=== PATIENT | male | born 1960 | race Caucasian/White ===

== ENCOUNTER 2019-08-25 10:26 | Inpatient (IN) | payer OTHER ==
[2019-08-25 11:19] VITALS: BMI 22.8
--- NOTE | 2019-08-25 12:31 | HP ---
<Rose Mary Ennis - Last Filed: 08/25/19 23:57> CIWA Score - Admission Criteria OASAS Guidelines: Admission for Medically Managed Detox: Requires at least one of the followin. CIWA greater than 12 2. Seizures within the past 24 hours 3. Delirium tremens within the past 24 hours 4. Hallucinations within the past 24 hours 5. Acute intervention needed for co occurring medical disorder 6. Acute intervention needed for co occurring psychiatric disorder 7. Severe withdrawal that cannot be handled at a lower level of care (continued vomiting, continued diarrhea, abnormal vital signs) requiring intravenous medication and/or fluids 8. Admission ROS S - HPI Allergies/Adverse Reactions: Allergies Allergy/AdvReac Type Severity Reaction Status Date / Time Penicillins Allergy Intermediate Swelling Verified 08/25/19 11:13 shrimp Allergy Severe Hives Uncoded 08/25/19 11:13 Admission Physical Exam [facility] - Vital Signs Vital Signs: Vital Signs - 24 hr 08/25/19 08/25/19 08/25/19 11:16 15:04 17:14 Temperature 97.0 F L 97.3 F L 97.2 F L Pulse Rate 72 58 L 66 Respiratory 18 16 16 Rate Blood Pressure 128/80 137/71 127/75 08/25/19 20:09 Temperature 98 F Pulse Rate 72 Respiratory 16 Rate Blood Pressure 111/72 <Wilmer King - Last Filed: 08/26/19 07:56> COWS - Scale Resting Pulse: 0= [place] 80 or Below Sweatin= Chills/Flushing Restless Observation: 1= Difficult to Sit Still Pupil Size: 1= Pupils >than Normal Bone or Joint Aches: 2= Severe Diffuse Aches Runny Nose/ Eye Tearin= Runny Nose/Eyes GI Upset > 30mins: 2= Nausea/Diarrhea Tremor Observation: 2= Slight Tremor Visible Yawning Observation: 1= 1-2x During Session Anxiety or Irritability: 2=Irritable/Anxious Goose Flesh Skin: 0=Smooth Skin COWS Score: 14 CIWA Score Nausea/Vomitin Muscle Tremors: 2 Anxiety: 3 Agitation: 3 Paroxysmal Sweats: 1-Minimal Palms Moist Orientation: 0-Oriented Tacttile Disturbances: 1-Very Mild Itch/Numbness Auditory Disturbances: 0-None Visual Disturbances: 0-None Headache: 2-Mild CIWA-Ar Total Score: 14 - Admission Criteria OASAS Guidelines: Admission for Medically Managed Detox: Requires at least one of the followin. CIWA greater than 12 2. Seizures within the past 24 hours 3. Delirium tremens within the past 24 hours 4. Hallucinations within the past 24 hours 5. Acute intervention needed for co occurring medical disorder 6. Acute intervention needed for co occurring psychiatric disorder 7. Severe withdrawal that cannot be handled at a lower level of care (continued vomiting, continued diarrhea, abnormal vital signs) requiring intravenous medication and/or fluids 8. Admission ROS [facility] - HPI Chief Complaint: i need help to stop using heroin,alcohol,cocaine History of Present Illness: this 58 years old male with heroin,cocaine and alcohol dependence,seeking detox, withdrawal symptom, multiple admissions in detox,last admission in [facility] in 05/17 had previous admission in this facility before in 2013 asthma arthritis of back low back pain nicotine dependence 1 pack/day weight loss longest sobriety 6 moths plan for rehab after detox hepatitis c treated Exam Limitations: No Limitations - Ebola screening Have you traveled outside of the country in the last 21 days: No Have you had contact with anyone from an Ebola affected area: No Do you have a fever: No - Review of Systems Constitutional: Chills, Loss of Appetite, Malaise, Night Sweats, Changes in sleep, Weakness, Unintentional Wgt. Loss EENT: reports: Tearing, Nose Congestion Respiratory: reports: Other (asthma) Cardiac: reports: No Symptoms Reported GI: reports: Diarrhea, Nausea, Abdominal cramping : reports: No Symptoms Reported Musculoskeletal: reports: Back Pain, Joint Pain, Muscle Pain Integumentary: reports: Dryness Neuro: reports: Headache, Tremors Endocrine: reports: No Symptoms Reported Hematology: reports: No Symptoms Reported Psychiatric: reports: No Sypmtoms Reported, Judgement Intact, Mood/Affect Appropiate, Orientated x3 Other Systems: Reviewed and Negative Patient History - Patient Medical History Hx Anemia: No Hx Asthma: Yes (ALBUTEROL INHALER) Hx Chronic Obstructive Pulmonary Disease (COPD): No Hx Cancer: No Hx Cardiac Disorders: No Hx Congestive Heart Failure: No Hx Hypertension: No Hx Hypercholesterolemia: No Hx Pacemaker: No HX Cerebrovascular Accident: No Hx Seizures: No Hx Dementia: No Hx Diabetes: No Hx Gastrointestinal Disorders: Yes (GERD--USES NEXIUM OR MYLANTA) Hx Liver Disease: No Hx Genitourinary Disorders: No Hx Sexually Transmitted Disorders: No Hx Renal Disease (ESRD): No Hx Thyroid Disease: No Hx Human Immunodeficiency Virus (HIV): No (NEGATIVE HX) Hx Hepatitis C: Yes (treated in 2015) Hx Depression: No Hx Suicide Attempt: No (DENIES) Hx Bipolar Disorder: No Hx Schizophrenia: No Other Medical History: no suicidal,no homicidal - Patient Surgical History Past Surgical History: Yes Hx Neurologic Surgery: No Hx Cataract Extraction: No Hx Cardiac Surgery: No Hx Lung Surgery: No Hx Breast Surgery: No Hx Breast Biopsy: No Hx Abdominal Surgery: No Hx Appendectomy: No Hx Cholecystectomy: No Hx Genitourinary Surgery: No Hx Section: No Hx Orthopedic Surgery: Yes (TENDON REPAIR LT.WRIST) Other Surgical History: laceration of left wrist with tendon and nerve injury in 1987 Anesthesia Reaction: No - PPD History Previous Implant?: Yes Documented Results: Negative w/proof Implanted On Prior [facility] Admission?: No Date: 04/20/14 Results: 0 mm PPD to be Administered?: No - Smoking Cessation Smoking history: Current every day smoker Have you smoked in the past 12 months: Yes Aproximately how many cigarettes per day: 20 Cigars Per Day: 0 Hx Chewing Tobacco Use: No Initiated information on smoking cessation: Yes 'Breaking Loose' booklet given: 08/25/19 - Substance & Tx. History Hx Alcohol Use: Yes Hx Substance Use: Yes Substance Use Type: Alcohol, Cocaine, Heroin Hx Substance Use Treatment: Yes ([facility] in 05/17 completed) - Substances abused Alcohol Substance route: Oral Frequency: Daily Amount used: 1 pint of whiskey/vodka Age of first use: 19 Date of last use: 08/24/19 Heroin Substance route: Injection Frequency: Daily Amount used: 8-10 bags Age of first use: 19 Date of last use: 08/24/19 Cocaine Substance route: Injection Frequency: 3-6 times per week Amount used: $20-40 Age of first use: 18 Date of last use: 08/24/19 Admission Physical Exam [facility] - Vital Signs Vital Signs: Vital Signs - 24 hr 08/25/19 11:16 Temperature 97.0 F L Pulse Rate 72 Respiratory 18 Rate Blood Pressure 128/80 - Physical General Appearance: Yes: Moderate Distress, Tremorous, Irritable, Sweating, Anxious HEENTM: Yes: Normal ENT Inspection, JORDAN, Pharynx Normal Respiratory: Yes: Lungs Clear, Normal Breath Sounds, No Respiratory Distress, Other (asthma) Neck: Yes: Within Normal Limits, Supple, Trachea in good position Breast: Yes: Within Normal Limits Cardiology: Yes: Within Normal Limits, Regular Rhythm, Regular Rate, S1, S2 Abdominal: Yes: Within Normal Limits, Normal Bowel Sounds, Non Tender, Flat, Soft Genitourinary: Yes: Within Normal Limits Back: Yes: Muscle Spasm Musculoskeletal: Yes: Back pain, Muscle Pain Extremities: Yes: Within Normal Limits, Normal Range of Motion, Tremors, Other ( injury to left wrist with tendon and nerve ,surgery) Neurological: Yes: soup person II-XII NML intact, Fully Oriented, Alert, Other (numbnes of fingers and back of the hand) Integumentary: Yes: Dry Lymphatic: Yes: Within Normal Limits - Diagnostic (1) Opioid dependence with withdrawal Current Visit: Yes Status: Acute (2) Alcohol dependence with uncomplicated withdrawal Current Visit: Yes Status: Acute (3) Nicotine dependence Current Visit: No Status: Chronic (4) Cocaine dependence Current Visit: Yes Status: Acute (5) Weight loss Current Visit: Yes Status: Acute (6) Asthma Current Visit: No Status: Active (7) Low back pain Current Visit: No Status: Active (8) s/p surgery for laceration of left wrist with laceration of Current Visit: No Status: Active Cleared for Admission [facility] - Detox or Rehab [facility] Level of Care: Medically Managed Detox Regimen/Protocol: Methadone/Valium Breathalyzer - Breathalyzer Breathalyzer: 0 Urine Drug Screen - Test Device Lot number: [id number] Expiration date: 04/28/21 - Control Is test valid?: Yes - Results Drug screen NEGATIVE: No Urine drug screen results: FAIZAN-Cocaine, MOP-Opiates, OXY-Oxycodone, MTD- Methadone, BZO-Benzodiazepines Inpatient Rehab Admission - Rehab Decision to Admit Inpatient rehab admission?: No
[2019-08-25] MEDS ORDERED: diazePAM 5 MG TABLET PO ONE (12:52)
[2019-08-25] MEDS ORDERED: MAG HYDROX/AL HYDROX/SIMETH 30 ML UNIT-DOSE CUP PO PRN (12:52)
[2019-08-25] MEDS ORDERED: METHOCARBAMOL 500 MG TABLET PO PRN (12:52)
[2019-08-25] MEDS ORDERED: MAGNESIUM HYDROX 2400MG/30ML ORAL SUSPENSION 30 ML CUP PO PRN (12:52)
[2019-08-25] MEDS ORDERED: cloNIDine HCL 0.1 MG TABLET PO PRN (12:52)
[2019-08-25] MEDS ORDERED: NICOTINE POLACRILEX 2 MG GUM BUC PRN (12:52)
[2019-08-25] MEDS ORDERED: hydrOXYzine PAMOATE 25 MG CAPSULE (FP) PO PRN (12:52)
[2019-08-25] MEDS ORDERED: MAGNESIUM CITRATE 300 ML BOTTLE PO PRN (12:52)
[2019-08-25] MEDS ORDERED: ACETAMINOPHEN 325 MG TABLET (FP) PO PRN ×2 (12:52)
[2019-08-25] MEDS ORDERED: MENTHOL/PHENOL 1 EACH UD MM PRN (12:52)
[2019-08-25] MEDS ORDERED: BISMUTH SUBSALICYLATE 524 MG/30 ML UD PO PRN (12:52)
[2019-08-25] MEDS ORDERED: ALBUTEROL SO4 8 GM HFA INHALER IH PRN (12:56)
[2019-08-25] MEDS ORDERED: METHADONE HCL 10 MG TABLET (FOR DETOX USE ONLY) PO ONE (14:05)
[2019-08-25 14:34] LABS: HEMATOCRIT 37.9 % (35.4-49); HEMOGLOBIN 12.6 GM/dL (11.7-16.9); MCH 30.8 pg (25.7-33.7); MCHC 33.3 g/dl (32.0-35.9); MEAN CELL VOLUME 92.7 fl (80-96); MEAN PLT VOLUME 9.2 fl (7.5-11.1); PLATELET COUNT 175 K/MM3 (134-434); RBC 4.08 M/mm3 (4.00-5.60); RDW 13.1 % (11.9-15.9)
[2019-08-25 14:37] LABS: ALBUMIN 4.2 g/dl (3.4-5.0); BILIRUBIN,TOTAL 0.7 mg/dL (0.2-1); CALCIUM 9.1 mg/dL (8.5-10.1); CREATININE 0.9 mg/dL (0.55-1.3); TOT PROT 7.8 g/dl (6.4-8.2)
[2019-08-25] MEDS: diazePAM 5 MG TABLET PO SCH ×2 (14:47→21:27)
[2019-08-25] MEDS: NICOTINE 21 MG/24 HOURS TOPICAL PATCH TD SCH (14:49)
[2019-08-25] MEDS: FLUTICASONE PROP 0.05% 16 GM NASAL SPRAY NS SCH ×2 (15:00→21:27)
[2019-08-25] MEDS: diazePAM 5 MG TABLET PO PRN (18:02)
[2019-08-25] MEDS: MELATONIN 5 MG TABLETS PO PRN (21:27)
[2019-08-25] MEDS: THIAMINE HCL 100 MG TABLET (FP) PO SCH (21:27)
[2019-08-25] MEDS: FLUOCINONIDE 0.05% CREAM (15 GM TUBE) TP SCH (21:28)
[2019-08-26] MEDS: diazePAM 5 MG TABLET PO SCH ×3 (05:29→21:47)
[2019-08-26] MEDS ORDERED: METHADONE HCL 5 MG TABLET (FOR DETOX USE ONLY) ONE (09:42)
[2019-08-26] MEDS ORDERED: METHADONE HCL 10 MG TABLET (FOR DETOX USE ONLY) ONE (09:42)
[2019-08-26] MEDS ORDERED: METHADONE (DETOX) 20 MG, METHADONE (DETOX) 5 MG PO ONE (10:00)
[2019-08-26 10:11] LABS: URINE APPEARANCE CLEAR; URINE BILIRUBIN NEGATIVE (NEGATIVE); URINE COLOR YELLOW; URINE GLUCOSE (UA) NEGATIVE (NEGATIVE); URINE KETONE NEGATIVE (NEGATIVE); URINE LEUK ESTERASE NEGATIVE (NEGATIVE); URINE NITRITE NEGATIVE (NEGATIVE); URINE PROTEIN NEGATIVE (NEGATIVE); URINE UROBILINOGEN 0.2 mg/dL (0.2-1.0)
[2019-08-26] MEDS: FLUTICASONE PROP 0.05% 16 GM NASAL SPRAY NS SCH ×2 (10:32→21:47)
[2019-08-26] MEDS: NICOTINE 21 MG/24 HOURS TOPICAL PATCH TD SCH (10:32)
[2019-08-26] MEDS: FLUOCINONIDE 0.05% CREAM (15 GM TUBE) TP SCH ×2 (10:32→21:48)
[2019-08-26] MEDS: PRENATAL VITAMINS W/ FOLIC ACID TABLET (FP) PO SCH (10:32)
[2019-08-26] MEDS: NAPROXEN 500 MG TABLET (FP) PO PRN (10:34)
--- NOTE | 2019-08-26 11:02 | PN ---
S CIWA - CIWA Score Nausea/Vomitin-No Nausea/No Vomiting Muscle Tremors: 2 Anxiety: 3 Agitation: 0-Normal Activity Paroxysmal Sweats: 3 Orientation: 0-Oriented Tacttile Disturbances: 0-None Auditory Disturbances: 0-None Visual Disturbances: 0-None Headache: 2-Mild CIWA-Ar Total Score: 10 [facility] COWS - Scale Resting Pulse: 0= [place] 80 or Below Sweatin= Beads of Sweat on Face Restless Observation: 1= Difficult to Sit Still Pupil Size: 0= Normal to Room Light Bone or Joint Aches: 2= Severe Diffuse Aches Runny Nose/ Eye Tearin= None GI Upset > 30mins: 0= None Tremor Observation of Outstretched Hands: 2= Slight Tremor Visible Yawning Observation: 1= 1-2x During Session Anxiety or Irritability: 2=Irritable/Anxious Goose Flesh Skin: 0=Smooth Skin COWS Score: 11 S Progress Note (SOAP) Subjective: c/o anxiety, irritability, sweats, headache, and shakes. Objective: 08/26/19 11:02 Vital Signs 08/26/19 08/26/19 08/26/19 03:30 07:05 09:43 Temperature 97.7 F 97.7 F Pulse Rate 135 H 64 Respiratory 18 20 17 Rate Blood Pressure 117/84 108/64 Lab Results WBC 5.0 K/mm3 (4.0-10.0) 08/25/19 13:00 RBC 4.08 M/mm3 (4.00-5.60) 08/25/19 13:00 Hgb 12.6 GM/dL (11.7-16.9) 08/25/19 13:00 Hct 37.9 % (35.4-49) 08/25/19 13:00 MCV 92.7 fl (80-96) 08/25/19 13:00 MCHC 33.3 g/dl (32.0-35.9) 08/25/19 13:00 RDW 13.1 % (11.9-15.9) 08/25/19 13:00 Plt Count 175 K/MM3 (134-434) 08/25/19 13:00 Sodium 138 mmol/L (136-145) 08/25/19 13:00 Potassium 4.0 mmol/L (3.5-5.1) 08/25/19 13:00 Chloride 100 mmol/L (98-107) 08/25/19 13:00 Carbon Dioxide 31 mmol/L (21-32) 08/25/19 13:00 Anion Gap 6 MMOL/L (8-16) L 08/25/19 13:00 BUN 19.0 mg/dL (7-18) H 08/25/19 13:00 Creatinine 0.9 mg/dL (0.55-1.3) 08/25/19 13:00 Random Glucose 94 mg/dL (74-106) 08/25/19 13:00 Calcium 9.1 mg/dL (8.5-10.1) 08/25/19 13:00 Labs noted. Assessment: 08/26/19 11:02 AOX3, in no acute respiratory distress. Full ROM, ambulating in the unit. Withdrawal symptoms. Plan: continue detox.
--- NOTE | 2019-08-26 15:08 | PN ---
S Progress Note Note: Pt c/o b/l ankle swelling. Pt states that swelling has been on and off for over 1year. Pt has no history of chf or htn. Denies any sob, chest pain, fatigue or weakness, at the moment. No rales or wheezing heard on auscultation, no JVD. Pedal pulses present. Vital signs stable. Refer to V/S flowsheet. Pt is also instructed to notify staff of any c/o difficulty breathing, chest pain, fatigue , or weakness. Pt is encouraged to elevate b/l LE when in bed and also encouraged to see his pmd after discharge for further work-up. Pt verbalized understanding of the information given.
[2019-08-26] MEDS: MELATONIN 5 MG TABLETS PO PRN (21:47)
[2019-08-26] MEDS: THIAMINE HCL 100 MG TABLET (FP) PO SCH (22:07)
[2019-08-27] MEDS: diazePAM 5 MG TABLET PO SCH ×2 (06:14→17:38)
[2019-08-27] MEDS ORDERED: METHADONE HCL 10 MG TABLET (FOR DETOX USE ONLY) PO ONE (10:00)
[2019-08-27] MEDS: FLUOCINONIDE 0.05% CREAM (15 GM TUBE) TP SCH ×2 (10:51→22:13)
[2019-08-27] MEDS: FLUTICASONE PROP 0.05% 16 GM NASAL SPRAY NS SCH ×2 (10:51→22:13)
[2019-08-27] MEDS: NICOTINE 21 MG/24 HOURS TOPICAL PATCH TD SCH (10:51)
[2019-08-27] MEDS: PRENATAL VITAMINS W/ FOLIC ACID TABLET (FP) PO SCH (10:51)
--- NOTE | 2019-08-27 17:08 | PN ---
[facility] CIWA - CIWA Score Nausea/Vomitin-No Nausea/No Vomiting Muscle Tremors: 3 Anxiety: 3 Agitation: 2 Paroxysmal Sweats: 3 Orientation: 0-Oriented Tacttile Disturbances: 0-None Auditory Disturbances: 0-None Visual Disturbances: 0-None Headache: 0-None Present CIWA-Ar Total Score: 11 [facility] COWS - Scale Resting Pulse: 1= [place] 81-100 Sweatin= Chills/Flushing Restless Observation: 3= Extraneous Movement Pupil Size: 0= Normal to Room Light Bone or Joint Aches: 1= Mild Discomfort Runny Nose/ Eye Tearin= None GI Upset > 30mins: 1= Stomach Cramp Tremor Observation of Outstretched Hands: 2= Slight Tremor Visible Yawning Observation: 0= None Anxiety or Irritability: 2=Irritable/Anxious Goose Flesh Skin: 0=Smooth Skin COWS Score: 11 [facility] Progress Note (SOAP) Subjective: Sweating, chills, interrupted sleep Objective: 08/27/19 17:06 Last Vital Signs Temp Pulse Resp BP Pulse Ox 97.7 F 84 18 118/50 L 08/27/19 10:02 08/27/19 10:02 08/27/19 10:02 08/27/19 10:02 Laboratory Tests 08/25/19 08/25/19 08/25/19 13:00 13:00 13:00 WBC 5.0 RBC 4.08 Hgb 12.6 Hct 37.9 MCV 92.7 MCH 30.8 MCHC 33.3 RDW 13.1 Plt Count 175 MPV 9.2 Sodium 138 Potassium 4.0 Chloride 100 Carbon Dioxide 31 Anion Gap 6 L BUN 19.0 H Creatinine 0.9 Est GFR (CKD-EPI)AfAm 110.27 Est GFR (CKD-EPI)NonAf 95.14 Random Glucose 94 Calcium 9.1 Total Bilirubin 0.7 AST 32 ALT 29 Alkaline Phosphatase 69 Total Protein 7.8 Albumin 4.2 Urine Color Urine Appearance Urine pH Ur Specific [place] Urine Protein Urine Glucose (UA) Urine Ketones Urine Blood Urine Nitrite Urine Bilirubin Urine Urobilinogen Ur Leukocyte Esterase RPR Titer Nonreactive 08/26/19 05:30 WBC RBC Hgb Hct MCV MCH MCHC RDW Plt Count MPV Sodium Potassium Chloride Carbon Dioxide Anion Gap BUN Creatinine Est GFR (CKD-EPI)AfAm Est GFR (CKD-EPI)NonAf Random Glucose Calcium Total Bilirubin AST ALT Alkaline Phosphatase Total Protein Albumin Urine Color Yellow Urine Appearance Clear Urine pH 6.0 Ur Specific [place] 1.015 Urine Protein Negative Urine Glucose (UA) Negative Urine Ketones Negative Urine Blood Negative Urine Nitrite Negative Urine Bilirubin Negative Urine Urobilinogen 0.2 Ur Leukocyte Esterase Negative RPR Titer Labs reviewed Assessment: 08/27/19 17:07 Withdrawal sxs Plan: Continue detox Encouraged PO water intake
[2019-08-27] MEDS: THIAMINE HCL 100 MG TABLET (FP) PO SCH (22:13)
[2019-08-27] MEDS: MELATONIN 5 MG TABLETS PO PRN (22:13)
[2019-08-28] MEDS ORDERED: diazePAM 5 MG TABLET PO ONE (06:00)
[2019-08-28] MEDS ORDERED: METHADONE HCL 10 MG TABLET (FOR DETOX USE ONLY) ONE (09:51)
[2019-08-28] MEDS ORDERED: METHADONE HCL 5 MG TABLET (FOR DETOX USE ONLY) ONE (09:52)
[2019-08-28] MEDS ORDERED: METHADONE (DETOX) 10 MG, METHADONE (DETOX) 5 MG PO ONE (10:00)
[2019-08-28] MEDS: FLUOCINONIDE 0.05% CREAM (15 GM TUBE) TP SCH ×2 (10:27→21:44)
[2019-08-28] MEDS: diazePAM 5 MG TABLET PO PRN (10:28)
[2019-08-28] MEDS: PRENATAL VITAMINS W/ FOLIC ACID TABLET (FP) PO SCH (10:28)
[2019-08-28] MEDS: FLUTICASONE PROP 0.05% 16 GM NASAL SPRAY NS SCH ×2 (10:29→21:41)
[2019-08-28] MEDS: FUROSEMIDE 40 MG TABLET (FP) PO SCH (10:30)
[2019-08-28] MEDS: NICOTINE 21 MG/24 HOURS TOPICAL PATCH TD SCH (10:31)
--- NOTE | 2019-08-28 10:39 | PN ---
[facility] CIWA - CIWA Score Nausea/Vomitin-Mild Nausea/No Vomiting Muscle Tremors: 1-None Visible, but [place] Anxiety: 1-Mildly Anxious Agitation: 1-Slight > Activity Paroxysmal Sweats: No Perspiration Orientation: 0-Oriented Tacttile Disturbances: 1-Very Mild Itch/Numbness Auditory Disturbances: 0-None Visual Disturbances: 0-None Headache: 2-Mild CIWA-Ar Total Score: 7 [facility] COWS - Scale Resting Pulse: 1= [place] 81-100 Sweatin= No chills or Flushing Restless Observation: 1= Difficult to Sit Still Pupil Size: 1= Pupils >than Normal Bone or Joint Aches: 1= Mild Discomfort Runny Nose/ Eye Tearin= Nasal Congestion GI Upset > 30mins: 1= Stomach Cramp Tremor Observation of Outstretched Hands: 1= Tremor [place], Not Seen Yawning Observation: 1= 1-2x During Session Anxiety or Irritability: 1=Feels Anxious/Irritable Goose Flesh Skin: 0=Smooth Skin COWS Score: 9 [facility] Progress Note (SOAP) Subjective: alert,irritable,anxious,interrupted sleep,edema both ankles and feet Objective: 08/28/19 10:38 Vital Signs Temperature 96.8 F L 08/28/19 09:04 Pulse Rate 81 08/28/19 09:04 Respiratory Rate 18 08/28/19 09:04 Blood Pressure 110/50 L 08/28/19 09:04 O2 Sat by Pulse Oximetry (%) Assessment: 08/28/19 10:38 withdrawal symptom Plan: continue detox methadone and valium regimen,lsix 40 mgspo daily x 3days
[2019-08-28] MEDS: MELATONIN 5 MG TABLETS PO PRN (21:41)
[2019-08-28] MEDS: THIAMINE HCL 100 MG TABLET (FP) PO SCH (21:41)
[2019-08-29] MEDS: PRENATAL VITAMINS W/ FOLIC ACID TABLET (FP) PO SCH (09:23)
[2019-08-29] MEDS: FLUOCINONIDE 0.05% CREAM (15 GM TUBE) TP SCH ×2 (09:24→22:13)
[2019-08-29] MEDS: FLUTICASONE PROP 0.05% 16 GM NASAL SPRAY NS SCH ×2 (09:24→22:13)
[2019-08-29] MEDS ORDERED: METHADONE HCL 10 MG TABLET (FOR DETOX USE ONLY) PO ONE (10:00)
[2019-08-29] MEDS: NICOTINE 21 MG/24 HOURS TOPICAL PATCH TD SCH (10:21)
[2019-08-29] MEDS: FUROSEMIDE 40 MG TABLET (FP) PO SCH (10:21)
--- NOTE | 2019-08-29 11:26 | PN ---
[facility] CIWA - CIWA Score Nausea/Vomitin-No Nausea/No Vomiting Muscle Tremors: 1-None Visible, but [place] Anxiety: 2 Agitation: 2 Paroxysmal Sweats: No Perspiration Orientation: 0-Oriented Tacttile Disturbances: 0-None Auditory Disturbances: 0-None Visual Disturbances: 0-None Headache: 1-Very Mild CIWA-Ar Total Score: 6 [facility] COWS - Scale Resting Pulse: 0= [place] 80 or Below Sweatin= No chills or Flushing Restless Observation: 1= Difficult to Sit Still Pupil Size: 1= Pupils >than Normal Bone or Joint Aches: 1= Mild Discomfort Runny Nose/ Eye Tearin= Nasal Congestion GI Upset > 30mins: 1= Stomach Cramp Tremor Observation of Outstretched Hands: 1= Tremor [place], Not Seen Yawning Observation: 1= 1-2x During Session Anxiety or Irritability: 1=Feels Anxious/Irritable Goose Flesh Skin: 0=Smooth Skin COWS Score: 8 [facility] Progress Note (SOAP) Subjective: alert,irritable,anxious,interrupted sleep,edema of foot and ankle is less Objective: 08/29/19 11:25 Vital Signs Temperature 98.1 F 08/29/19 09:36 Pulse Rate 77 08/29/19 09:36 Respiratory Rate 18 08/29/19 09:36 Blood Pressure 119/68 08/29/19 09:36 O2 Sat by Pulse Oximetry (%) Assessment: 08/29/19 11:25 withdrawal symptom Plan: continue methadone and valium,discharge in am
[2019-08-29] MEDS: THIAMINE HCL 100 MG TABLET (FP) PO SCH (22:13)
[2019-08-29] MEDS: MELATONIN 5 MG TABLETS PO PRN (22:13)
[2019-08-30] MEDS ORDERED: METHADONE HCL 5 MG TABLET (FOR DETOX USE ONLY) PO ONE (06:00)
--- NOTE | 2019-08-30 08:47 | DS ---
[facility] Detox Discharge Summary Admission Date: 08/25/19 Discharge Date: 08/30/19 - History Present History: Alcohol Dependence, Opioid Dependence - Physical Exam Results Vital Signs: Vital Signs Temperature 97.7 F 08/30/19 06:10 Pulse Rate 62 08/30/19 06:10 Respiratory Rate 18 08/30/19 06:10 Blood Pressure 127/71 08/30/19 06:10 O2 Sat by Pulse Oximetry (%) Pertinent Admission Physical Exam Findings: pt arrived in withdrawals Laboratory Tests 08/25/19 08/25/19 08/25/19 13:00 13:00 13:00 WBC 5.0 RBC 4.08 Hgb 12.6 Hct 37.9 MCV 92.7 MCH 30.8 MCHC 33.3 RDW 13.1 Plt Count 175 MPV 9.2 Sodium 138 Potassium 4.0 Chloride 100 Carbon Dioxide 31 Anion Gap 6 L BUN 19.0 H Creatinine 0.9 Est GFR (CKD-EPI)AfAm 110.27 Est GFR (CKD-EPI)NonAf 95.14 Random Glucose 94 Calcium 9.1 Total Bilirubin 0.7 AST 32 ALT 29 Alkaline Phosphatase 69 Total Protein 7.8 Albumin 4.2 Urine Color Urine Appearance Urine pH Ur Specific [place] Urine Protein Urine Glucose (UA) Urine Ketones Urine Blood Urine Nitrite Urine Bilirubin Urine Urobilinogen Ur Leukocyte Esterase RPR Titer Nonreactive 08/26/19 05:30 WBC RBC Hgb Hct MCV MCH MCHC RDW Plt Count MPV Sodium Potassium Chloride Carbon Dioxide Anion Gap BUN Creatinine Est GFR (CKD-EPI)AfAm Est GFR (CKD-EPI)NonAf Random Glucose Calcium Total Bilirubin AST ALT Alkaline Phosphatase Total Protein Albumin Urine Color Yellow Urine Appearance Clear Urine pH 6.0 Ur Specific [place] 1.015 Urine Protein Negative Urine Glucose (UA) Negative Urine Ketones Negative Urine Blood Negative Urine Nitrite Negative Urine Bilirubin Negative Urine Urobilinogen 0.2 Ur Leukocyte Esterase Negative RPR Titer today pt is aaox3 ambulating no acute distress no s/s of withdrawals - Treatment Hospital Course: Detox Protocol Followed, Detoxed Safely, Responded well, Discharged Condition Good, Rehab Referral Accepted Patient has Accepted a Rehab Referral to: pt referred to [facility] inpatient rehab - Medication Discharge Medications: Ambulatory Orders Albuterol Sulfate Inhaler - [Ventolin HFA Inhaler -] 2 inh PO PRN PRN 04/18/14 Naproxen [Naprosyn -] 500 mg PO BID PRN 04/18/14 - Diagnosis (1) Alcohol dependence with uncomplicated withdrawal Current Visit: Yes Status: Chronic (2) Cocaine dependence Current Visit: Yes Status: Chronic Qualifiers: Substance use status: uncomplicated Qualified Code(s): F14.20 - Cocaine dependence, uncomplicated (3) Opioid dependence with withdrawal Current Visit: Yes Status: Chronic (4) Weight loss Current Visit: Yes Status: Chronic (5) Asthma Current Visit: Yes Status: Acute (6) Low back pain Current Visit: Yes Status: Acute (7) genital herpes by history Current Visit: No Status: Active (8) hep c Current Visit: No Status: Active (9) s/p surgery for laceration of left wrist with laceration of Current Visit: No Status: Active (10) Chronic back pain Current Visit: Yes Status: Chronic (11) Nicotine dependence Current Visit: Yes Status: Chronic - AMA Did Patient Leave Against Medical Advice: No
[2019-08-30 09:16] VITALS: BP 114/64; PULSE 70; TEMP 97.6
[2019-08-30] MEDS: PRENATAL VITAMINS W/ FOLIC ACID TABLET (FP) PO SCH (09:30)
[2019-08-30] MEDS: FLUOCINONIDE 0.05% CREAM (15 GM TUBE) TP SCH (09:30)
[2019-08-30] MEDS: FUROSEMIDE 40 MG TABLET (FP) PO SCH (09:30)
[2019-08-30] MEDS: FLUTICASONE PROP 0.05% 16 GM NASAL SPRAY NS SCH (09:32)
[2019-08-30] MEDS: NAPROXEN 500 MG TABLET (FP) PO PRN (09:33)
[2019-08-30] MEDS: NICOTINE 21 MG/24 HOURS TOPICAL PATCH TD SCH (09:34)
== END 2019-08-30 12:05 | disposition other institution (70) | DRG 773 ==
LOC: YASAS 10:26 → Y6N 13:55
PROVIDERS: ADMIT Surgery; ATTEND Surgery
PROC: HZ2ZZZZ Detoxification Services for Substance Abuse Treatment (ICD-10-PCS; principal; 2019-08-25)
DX: F11.23 Opioid dependence with withdrawal (principal); F10.230 Alcohol dependence with withdrawal, uncomplicated; F14.20 Cocaine dependence, uncomplicated; F17.210 Nicotine dependence, cigarettes, uncomplicated; J45.909 Unspecified asthma, uncomplicated; R63.4 Abnormal weight loss; M54.5 Low back pain; G89.29 Other chronic pain; B18.2 Chronic viral hepatitis C; K21.9 Gastro-esophageal reflux disease without esophagitis; Z88.0 Allergy status to penicillin; Z91.013 Allergy to seafood; Z87.438 Personal history of other diseases of male genital organs
CPT/HCPCS: 36415; 80053; 81003; 85027; 86593

== ENCOUNTER 2019-08-30 11:36 | Inpatient (IN) | payer OTHER ==
--- NOTE | 2019-08-30 11:26 | HP ---
[facility] Rehab Assess/Revision - Admission History Admitted to Rehab from[facility] - Findings Detox History & Physical reviewed: Yes Concur with findings: Yes Inpatient Rehab Admission - Rehab Decision to Admit Inpatient rehab admission?: Yes - Initial Determination Are CD services needed?: Yes Free of communicable disease: Yes Not in need of hospitalization: Yes - Rehab Admission Criteria Previous failed treatment: Yes Poor recovery environment: Yes Comorbidities: Yes Lacks judgement: Yes Patient is meeting Inpatient Rehab admission criteria:: Yes
[~2019-08-30 11:36] MED LIST: ACETAMINOPHEN 325 MG TABLET (FP) PO PRN; IBUPROFEN 400 MG TABLET (FP) PO PRN; LOPERAMIDE HCL 2 MG CAPSULE PO PRN; MAG HYDROX/AL HYDROX/SIMETH 30 ML UNIT-DOSE CUP PO PRN; MAGNESIUM CITRATE 300 ML BOTTLE PO PRN; MAGNESIUM HYDROX 2400MG/30ML ORAL SUSPENSION 30 ML CUP PO PRN; MENTHOL/PHENOL 1 EACH UD MM PRN; NICOTINE POLACRILEX 4 MG GUM BUC PRN; P-EPHED 60MG/TRIPROLIDI 2.5MG TABLET PO PRN; guaiFENesin 200 MG/10 ML 10 ML UNIT-DOSE CUPS PO PRN; hydrOXYzine PAMOATE 50 MG CAPSULE (FP) PO PRN
[2019-08-30] MEDS: THIAMINE HCL 100 MG TABLET (FP) PO SCH (21:06)
[2019-08-30] MEDS: MELATONIN 5 MG TABLETS PO PRN (21:07)
[2019-08-31] MEDS: NICOTINE 21 MG/24 HOURS TOPICAL PATCH TD SCH (09:48)
[2019-08-31] MEDS: PRENATAL VITAMINS W/ FOLIC ACID TABLET (FP) PO SCH (09:48)
[2019-08-31] MEDS ORDERED: NAPROXEN 500 MG TABLET (FP) PO PRN (10:03)
[2019-08-31] MEDS ORDERED: ALBUTEROL SO4 8 GM HFA INHALER IH PRN (10:05)
[2019-08-31] MEDS: FLUTICASONE PROP 0.05% 16 GM NASAL SPRAY NS SCH ×2 (11:08→21:13)
[2019-08-31] MEDS: NAPROXEN 500 MG TABLET (FP) PO PRN (21:12)
[2019-08-31] MEDS: THIAMINE HCL 100 MG TABLET (FP) PO SCH (21:12)
[2019-08-31] MEDS: MELATONIN 5 MG TABLETS PO PRN (21:12)
[2019-09-01] MEDS: PRENATAL VITAMINS W/ FOLIC ACID TABLET (FP) PO SCH (09:59)
[2019-09-01] MEDS: NICOTINE 21 MG/24 HOURS TOPICAL PATCH TD SCH (10:00)
[2019-09-01] MEDS: NAPROXEN 500 MG TABLET (FP) PO PRN ×2 (10:00→21:11)
[2019-09-01] MEDS: FLUTICASONE PROP 0.05% 16 GM NASAL SPRAY NS SCH ×2 (10:01→21:10)
[2019-09-01] MEDS: MELATONIN 5 MG TABLETS PO PRN (21:09)
[2019-09-01] MEDS: THIAMINE HCL 100 MG TABLET (FP) PO SCH (21:09)
[2019-09-02 06:37] VITALS: BP 110/71; PULSE 70; TEMP 97.8
--- NOTE | 2019-09-02 09:40 | PN ---
[facility] Progress Note Note: Rehab Discharge Summary Patient Name: NICHOL ELDER Date of : 64 Patient Status: Inpatient Attending Provider: Cayla Bolden Date: 09/02/19 09:35 Initialization Date: 09/02/19 09:35 Rehab Discharge Summary Admission Date: 08/30/19 Discharge Date: 09/02/19 - History Present History: Alcohol Dependence, Cannabis Dependence, Cocaine Dependence, Opioid Dependence Pertinent Past History: Asthma, OA, low back pain,nicotine dependence and hep C - Physical Exam Results Vital Signs: Vital Signs Temperature 97.8 F 09/02/19 06:36 Pulse Rate 70 09/02/19 06:36 Respiratory Rate 17 09/02/19 06:36 Blood Pressure 110/71 09/02/19 06:36 O2 Sat by Pulse Oximetry (%) - Treatment Patient has Accepted a Rehab Referral to: Patient discharged early from rehab per his request - Medication Discharge Medications: Ambulatory Orders Albuterol Sulfate Inhaler - [Ventolin HFA Inhaler -] 2 inh PO PRN PRN 04/18/14 Naproxen [Naprosyn -] 500 mg PO BID PRN 04/18/14 - Diagnosis (1) Alcohol dependence Current Visit: Yes Status: Acute (2) Opioid dependence Current Visit: Yes Status: Chronic (3) hep c Current Visit: No Status: Chronic (4) Asthma Current Visit: No Status: Acute (5) Chronic back pain Current Visit: No Status: Chronic (6) Cocaine dependence Current Visit: No Status: Chronic Qualifiers: (7) Nicotine dependence Current Visit: No Status: Chronic - AMA Did Patient Leave Against Medical Advice: No (Early discharge)
[2019-09-02] MEDS: PRENATAL VITAMINS W/ FOLIC ACID TABLET (FP) PO SCH (09:43)
[2019-09-02] MEDS: NAPROXEN 500 MG TABLET (FP) PO PRN (09:43)
[2019-09-02] MEDS: NICOTINE 21 MG/24 HOURS TOPICAL PATCH TD SCH (09:44)
[2019-09-02] MEDS: FLUTICASONE PROP 0.05% 16 GM NASAL SPRAY NS SCH (09:44)
== END 2019-09-02 10:00 | disposition home or self-care (01) | DRG 772 ==
LOC: YASAS 11:36 → Y5N 11:42
PROVIDERS: ADMIT Neuromusculoskeletal Medicine & OMM; ATTEND Neuromusculoskeletal Medicine & OMM
PROC: HZ42ZZZ Group Counseling for Substance Abuse Treatment, Cognitive-Behavioral (ICD-10-PCS; principal; 2019-08-30)
DX: F11.20 Opioid dependence, uncomplicated (principal); F10.20 Alcohol dependence, uncomplicated; F14.20 Cocaine dependence, uncomplicated; F17.210 Nicotine dependence, cigarettes, uncomplicated; J45.909 Unspecified asthma, uncomplicated; B18.2 Chronic viral hepatitis C; M54.5 Low back pain